=== PATIENT | male | born 1960 | race Caucasian/White ===

== ENCOUNTER 2022-06-10 06:46 | Inpatient (IN) | payer MEDICARE, MEDICAID ==
[~2022-06-10] VITALS: Ht 190.5 cm; Wt 85.8 kg
[2022-06-10 07:53] LABS: ALBUMIN 3.7 GM/DL (3.2-4.5); POTASSIUM 4.3 MMOL/L (3.6-5.0)
[2022-06-10 07:55] LABS: CALCIUM 9.7 MG/DL (8.5-10.1)
[2022-06-10 07:56] LABS: BASOPHILS % (AUTO) 0 % (0-10); EOSINOPHILS % (AUTO) 0 % (0-10); HEMATOCRIT 35 % (40-54); HEMOGLOBIN 11.8 g/dL (13.3-17.7); LYMPHOCYTES % (AUTO) 15 % (12-44); MEAN CORPUSCULAR HEMOGLOBIN 31 pg (25-34); MEAN CORPUSCULAR HGB CONC 34 g/dL (32-36); MEAN CORPUSCULAR VOLUME 90 fL (80-99); MEAN PLATELET VOLUME 9.8 fL (9.0-12.2); MONOCYTES # (AUTO) 0.5 10^3/uL (0.0-1.0); MONOCYTES % (AUTO) 7 % (0-12); NEUTROPHILS # (AUTO) 5.2 10^3/uL (1.8-7.8); NEUTROPHILS % (AUTO) 73 % (42-75); PLATELET COUNT 269 10^3/uL (130-400); TOTAL PROTEIN 6.4 GM/DL (6.4-8.2); WHITE BLOOD COUNT 7.1 10^3/uL (4.3-11.0)
[2022-06-10 07:57] LABS: BILIRUBIN,TOTAL 0.3 MG/DL (0.1-1.0)
[2022-06-10 07:59] LABS: CREATININE SERUM 0.77 MG/DL (0.60-1.30)
[2022-06-10 08:15] LABS: INR 1.1 (0.8-1.4); PROTHROMBIN TIME PATIENT 14.7 SEC (12.2-14.7)
--- NOTE | 2022-06-10 08:18 | Diagnostic Imaging Report ---
PROCEDURE: CT head without contrast. TECHNIQUE: Multiple contiguous axial images were obtained through the brain without the use of intravenous contrast. Auto Exposure Controls were utilized during the CT exam to meet ALARA standards for radiation dose reduction. INDICATION: Stage IV brain cancer. No previous studies for comparison. FINDINGS: There is vasogenic edema with a 1.3 cm hyperdense mass along the left parietal-occipital cortex. There is also a hyperdense area in the anterior left temporal fossa measuring 2.5 x 2 cm with mild vasogenic edema. There is a 2 cm x 1.5 cm hyperdense area in the right occipital region with mild vasogenic edema. Basal cisterns are clear. Ventricles appear normal. No evidence of subarachnoid hemorrhage. Mastoid air cells and paranasal sinuses are clear. No bony abnormalities. IMPRESSION: Multiple hyperdense areas with vasogenic edema as described. These likely represent hemorrhagic metastatic lesions with patient's history. No evidence of herniation or subarachnoid hemorrhage. No previous for comparison. Dictated by: Dictated on workstation # [id number]
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
[2022-06-10] MEDS ORDERED: morphine INJ 10 MG/ML 1ML (SYR OR VIAL) IVP STA (11:41)
[2022-06-10] MEDS ORDERED: LORazepam 0.5 MG (ATIVAN) TABLET BC ONE (11:45)
[2022-06-10] MEDS ORDERED: polyethylene glycoL POWDER 17 GM (MIRALAX) PACK PO PRN (13:15)
[2022-06-10] MEDS ORDERED: diphenhydrAMINE 25 MG TAB (BENADRYL) PO PRN (13:15)
[2022-06-10] MEDS ORDERED: CALCIUM CARBONATE 500 MG (TUMS) TAB.CHEW PO PRN (13:15)
[2022-06-10] MEDS ORDERED: ONDANSETRON 4 MG/2 ML (SDV) Z0FRAN IV PRN (13:15)
[2022-06-10] MEDS ORDERED: NS IV 500 ML 500 ML IV PRN (13:15)
[2022-06-10] MEDS ORDERED: MELATONIN 3 MG TABLET PO PRN (13:15)
[2022-06-10] MEDS ORDERED: BISACODYL 10 MG SUPP (DULCOLAX) PR PRN (13:15)
[2022-06-10] MEDS ORDERED: diphenhydrAMINE 50 MG/ML INJ (BENADRYL) IVP PRN (13:15)
[2022-06-10] MEDS ORDERED: MILK OF MAGNESIA 400 MG/5 ML 30 ML UDC PO PRN (13:15)
[2022-06-10] MEDS ORDERED: ONDANSETRON 4 MG (ZOFRAN) ORAL DISSOLVE TAB PO PRN (13:15)
[2022-06-10] MEDS ORDERED: ANTACID SUSP 30 ML UDC (MYLANTA) PO PRN (13:15)
[2022-06-10] MEDS ORDERED: LACTULOSE SYRUP 10GM/15ML (ENULOSE) 30ML UDC PO PRN (13:15)
[2022-06-10] MEDS ORDERED: ACETAMINOPHEN 325 MG TABLET PO PRN (13:15)
[2022-06-10] MEDS ORDERED: MORP-68 PO (14:38)
[2022-06-10] MEDS ORDERED: OMEP40CA6 PO (14:38)
[2022-06-10] MEDS ORDERED: OLAN15TA35 PO (14:38)
[2022-06-10] MEDS ORDERED: DIAZ5TAB49 PO (14:38)
[2022-06-10] MEDS ORDERED: MORP15TA PO (14:38)
[2022-06-10] MEDS ORDERED: ATOR10TA66 PO (14:38)
[2022-06-10] MEDS ORDERED: LEVE500T6 PO (14:38)
[2022-06-10] MEDS ORDERED: ESOM20CA58 PO (14:38)
--- NOTE | 2022-06-10 14:43 | Physical Therapy Evaluation ---
PT Evaluation-General Medical Diagnosis Admission Date Jun 10, 2022 at 13:11 Medical Diagnosis: AMS/metatstatic cancer to brain Onset Date: Jun 10, 2022 Therapy Diagnosis Therapy Diagnosis: debility Precautions Precautions/Isolations: Fall Prevention, Standard Precautions Referral Physician: Valentina Reason for Referral: Evaluation/Treatment Medical History Pertinent Medical History: HTN, Smoking Additional Medical History recent diagnosis of metastatic cancer to brain Current History ER secondary to AMS/left AMA from [facility] Reviewed History: Yes Social History Home: Multilevel Current Living Status: Spouse Entry Into Home: Stairs With Railing PT Steps Into Home: 4 PT Steps Inside Home: 12 Prior Prior Level of Function SCALE: Activities may be completed with or without assistive devices. 2-Xkfzgwmpsq-ldychst completes the activity by him/herself with no assistance from a helper. 5-Set-up or Clean-up Assistance-helper sets up or cleans up; patient completes activity. [place] assists only prior to or following the activity. 4-Supervision or Touching Assistance-helper provides verbal cues and/or touching/steadying and/or contact guard assistance as patient completes ac tivity. Assistance may be provided throughout the activity or intermittently. 3-Partial/Moderate Assistance-helper does LESS THAN HALF the effort. [place] lifts, holds or supports trunk or limbs, but provides less than half the effort. 2-Substantial/Maximal Assistance-helper does MORE THAN HALF the effort. [place] lifts or holds trunk or limbs and provides more than half the effort. 2-Bryupzhuw-ebdacn does ALL the effort. Patient does none of the effort to complete the activity. Or, the assistance of 2 or more helpers is required for the patient to complete the activity. If activity was not attempted, code reason: 7-Patient Refused. 9-Not Applicable-not attempted and the patient did not perform the activity before the current illness, exacerbation or injury. 10-Not Attempted due to Environmental Limitations-(lack of equipment, weather restraints, etc.). 88-Not Attempted due to Medical Conditions or Safety Concerns. Bed Mobility: 6 Transfers (B,C,W/C): 6 Gait: 6 Stairs: 6 Indoor Mobility (Ambulation): Independent Stairs: Independent Prior Devices Use: None PT Evaluation-Current Subjective Patient agrees to PT. Objective Patient Orientation: Person, Time, Situation ROM/Strength ROM Lower Extremities bilateral LE WFL Strength Lower Extremities 4-/5 grossly bilateral LE all planes Integumentary/Posture Bowel Incontinence: No Bladder Incontinence: No Posture WFL Neuromuscular (Tone, Coordination, Reflexes) grossly intact Sensory Vision: Functional Hearing: Functional Transfers Roll Left to Right (QC): 6 Sit to Lying (QC): 6 Lying to Sitting/Side of Bed(Q: 6 Sit to Stand (QC): 6 Chair/Flc-vc-Vqltq Xfer(QC): 6 Gait Does the Patient Walk?: Yes Mode of Locomotion: Walk Anticipated Mode of Locomotion: Walk Walk 10 feet (QC): 6 Walk 50 ft with 2 Turns(QC): 6 Walk 150 ft (QC): 6 Distance: 400' Gait Assistive Device: None Comments/Gait Description patient ambulated 100' backward independently Balance Sitting Static: Normal Sitting Dynamic: Normal Standing Static: Normal Standing Dynamic: Normal Picking up an Object (QC): 6 Assessment/Needs Patient is currently at independent PLOF with all gross motor skills and does no t require skilled PT intervention. Rehab Potential: Guarded PT Plan Treatment/Plan Treatment Plan: Discontinue PT Treatment Duration: Jun 10, 2022 Frequency: 1 time per week Estimated Hrs Per Day: .25 hour per day Time/GCodes Time In: 1330 Time Out: 1342 Total Billed Treatment Time: 12 Total Billed Treatment 1 visit EVMod 12 min LEATHA PERSON PT Jun 10, 2022 14:43
--- NOTE | 2022-06-10 14:59 | Tele-ICU Consult ---
History of Present Illness History of Present Illness Date Seen by Provider: Jun 10, 2022 Time Seen by Provider: 14:59 Date of Admission (Tele-ICU Physician , consultation) Available chart/ vitals / labs / Images reviewed H&P is from ER notes Patient's information available about PMH, Shx, Fhx allergy reviewed inEMR. ROS as per chart and RN report Now in ICU, hemodynamically stable Video assessment done using teleICU camera, rest of exam as per RN Discussed with RN. Consultants: Hospital course: A/P Melanoma, metastases to the brain on April 13, 2022 -CT with Multiple hyperdense areas with vasogenic edema, hemorrhagic metastatic lesions ( No evidence of herniation or SAH - as per ER note - patient's onc Dr. Jose Tejeda, ([place] ) is education and training coordinator this weekend. He may be reached on his mobile number at [phone]. As per ER MD note " From a prognostic perspective, the patient is not a candidate for any surgical or IR interventions, even if his status were to worsen" - cont steroids IV - BP monitor , SBP<140 - neurochecks -avoid hyponatremia - cont keppra Lines : , (Central Line Necessity Reviewed) [place]: OG: Nutrition: Analgesia: Anxiety/ delirium VTE Prophylaxis: scd Stress Ulcer Prophylaxis: na Glycemic Control: Plans in collaboration with bedside consultants and IM MDs. Discussed with RN to reach out if any questions or concerns A total of 31 minutes of critical care time was devoted to this patient today, required to treat and/or prevent further deterioration of critical care condition ( as above Allergies and Home Medications Allergies Coded Allergies: gabapentin (Verified Allergy, Unknown, 06/10/22) Home Medications Atorvastatin Calcium 10 Mg Tablet, 10 MG PO DAILY, (Reported) Diazepam 5 Mg Tablet, 5 MG PO Q8H, (Reported) Esomeprazole Magnesium 20 Mg Capsule.dr, 20 MG PO HS, (Reported) Levetiracetam 500 Mg Tablet, 1,000 MG PO BID, (Reported) TAKES 2 (500MG) TABS Morphine Sulfate 15 Mg Tablet, 15 MG PO Q4H PRN for PAIN-SEVERE (8-10), (Reported) Morphine Sulfate 15 Mg Tablet.er, 15 MG PO Q12H, (Reported) Olanzapine 15 Mg Tablet, 15 MG PO HS, (Reported) Omeprazole 40 Mg Capsule.dr, 40 MG PO DAILY, (Reported) Past Medical/Social/Family Hx Patient Social History Tobacco Use?: No Smoking Status: Never a Smoker Smokeless type used: Chew Smokeless Tobacco Frequency: Never a User Use of E-Cig and/or Vaping dev: No Substance use?: Yes Substance type: Marijuana MEDICAL JW W/ CARD Substance frequency: Daily Alcohol Use?: No Pt stated abuse/neglect: No Immunizations Up To Date Influenza Vaccine Up-to-Date: Yes; Up-to-Date Current Status Advance Directives: No Communicates: Verbally Primary Language: Ghanaian Preferred Spoken Language: Ghanaian Is interpretation needed?: No Implanted or Applied Medical D: Other Review of Systems Constitutional: see HPI Focused Exam Height, Weight, BMI Height: '" Weight: lbs. oz. kg; 23.11 BMI Method: Exam Exam Patient acknowledged, consented, and participated in this virtual visit which was conducted using real time audio/video Vital Signs Date Time Temp Pulse Resp B/P (MAP) Pulse Ox O2 Delivery O2 Flow Rate FiO2 06/10/22 14:00 62 13 148/99 100 Room Air 06/10/22 13:16 63 06/10/22 13:03 62 14 133/99 Room Air 06/10/22 13:00 66 19 150/95 99 06/10/22 07:13 36.8 70 13 137/85 (102) 99 Room Air Height & Weight Height: '" Weight: lbs. oz. kg; 23.11 BMI Method: General Appearance: No Apparent Distress, WD/WN HEENT: PERRL/EOMI, Normal ENT Inspection Neck: Normal Inspection Respiratory: Lungs Clear, Normal Breath Sounds, No Accessory Muscle Use, No Respiratory Distress Cardiovascular: Regular Rate, Rhythm, No Edema, No Murmur Capillary Refill: Less Than 3 Seconds Extremity: Normal Inspection, No Pedal Edema Neurologic/Psychiatric: Alert, Oriented x3, No Motor/Sensory Deficits, Normal Mood/Affect, case supervisor II-XII Norm as Tested, Other (Cognition dulled and history slightly confused) Skin: Normal Color, Warm/Dry Results Lab Laboratory Tests 06/10/22 07:10 Assessment/Plan Assessment/Plan 1 DARIO FREITAS MD Jun 10, 2022 14:59
[2022-06-10] MEDS ORDERED: hydrALAZINE (APESOLINE) 20 MG/ML VIAL IV PRN (15:00)
--- NOTE | 2022-06-10 15:08 | Occupational Therapy Eval ---
OT Evaluation-General/PLF Medical Diagnosis Admission Date Jun 10, 2022 at 13:11 Medical Diagnosis: AMS/metatstatic cancer to brain Onset Date: Jun 10, 2022 Therapy Diagnosis Therapy Diagnosis: n/a Precautions Precautions/Isolations: Fall Prevention, Standard Precautions Referral Physician: Valentina Referral Reason: Evaluation/Treatment Medical History Pertinent Medical History: HTN, Smoking Additional Medical History mets to the brain Current History Pt arrived to ER with AMS. Per chart, he left [facility]. Patient reports that he lives with his in a single story home (with a basement). He was indep with adls and cooking and his manages the laundry and cleaning. He was not using any AD at baseline. He reports old fracture resulting in limp when walking. Reviewed History: Yes Social History Home: Single Level Current Living Status: Spouse Entry Into Home: Stairs With Railing Steps Into Home: 4 Steps Inside Home: 12 (to basement) ADL-Prior Level of Function SCALE: Activities may be completed with or without assistive devices. 8-Lbmzahnzcj-eurprmf completes the activity by him/herself with no assistance from a helper. 5-Set-up or Clean-up Assistance-helper sets up or cleans up; patient completes activity. [place] assists only prior to or following the activity. 4-Supervision or Touching Assistance-helper provides verbal cues and/or touching/steadying and/or contact guard assistance as patient completes activity. Assistance may be provided throughout the activity or intermittently. 3-Partial/Moderate Assistance-helper does LESS THAN HALF the effort. [place] lifts, holds or supports trunk or limbs, but provides less than half the effort. 2-Substantial/Maximal Assistance-helper does MORE THAN HALF the effort. [place] lifts or holds trunk or limbs and provides more than half the effort. 6-Cjkzfwhya-gldfza does ALL the effort. Patient does none of the effort to complete the activity. Or, the assistance of 2 or more helpers is required for the patient to complete the activity. If activity was not attempted, code reason: 7-Patient Refused. 9-Not Applicable-not attempted and the patient did not perform the activity before the current illness, exacerbation or injury. 10-Not Attempted due to Environmental Limitations-(lack of equipment, weather restraints, etc.). 88-Not Attempted due to Medical Conditions or Safety Concerns. Self Care: Independent Functional Cognition: Unknown DME/Equipment: Tub/Shower OT Current Status Subjective Pt denies pain, agreeable to evaluation. Appearance Pt returned to supine, all needs within reach at OT departure. Mental Status/Objective Patient Orientation: Person, Place, Situation Attachments: IV, Telemetry Current Hearing Aids: No Hand Dominance: Right Upper Extremity ROM WNL Upper Extremity Sensation Pt reports mild "tingling" in R fingertips but that it does not interrupt his daily tasks such as eating. Upper Extremity Strength WFL ADL-Treatment Eating (QC): 6 Lower Body Dressing (QC): 6 On/Off Footwear (QC): 6 Pt independent with all transfers. No difficulty donning/doffing bilateral socks while seated EOB. Pt able to stand without difficulty. He was able to reach in multiple planes. No unsteadiness observed. Anticipate no difficulty with clothing management or standing functional tasks. Per PT, pt ambulated independently >500 feet without device. Pt denies any self care concerns, no skilled OT services warranted at this time. Education OT Patient Education: Purpose of tx/functional activities Teaching Recipient: Patient Teaching Methods: Discussion Response to Teaching: Verbalize Understanding, Return Demonstration OT Fpc Goals Fpc Goals 1=Demonstrate adherence to instructed precautions during ADL tasks. 2=Patient will verbalize/demonstrate understanding of assistive devices/modifications for ADL. 3=Patient will improve strength/tolerance for activity to enable patient to perform ADL's. OT Education/Plan Problem List/Assessment Assessment: No Skilled OT Needs ID'd Discharge Recommendations Plan/Recommendations: Discontinue OT Therapy Discharge Recommendati: Home & Family Treatment Plan/Plan of Care Treatment,Training & Education: Yes Patient would benefit from OT for education, treatment and training to promote independence in ADL's, mobility, safety and/or upper extremity function for ADL's. Plan of Care: ADL Retraining Treatment Duration: Jun 10, 2022 Frequency: 1 time per week Estimated Hrs Per Day: .25 hour per day Agreement: Yes Time/GCodes Start Time: 14:48 Stop Time: 14:58 Total Time Billed (hr/min): 10 Billed Treatment Time 1 visit Mary Patino OT Jun 10, 2022 15:08
[2022-06-10] MEDS: inSUlin ASPART (NovoLOG) 1 UNIT/0.01 ML (CHARGE PER UNIT) SC SCH ×2 (16:59→22:13)
[2022-06-10] MEDS: morphine ER 15 MG (MS CONTIN) TAB PO SCH (19:37)
[2022-06-10] MEDS ORDERED: AtorvaSTATin TABLET 10 MG TABLET PO SCH (21:00)
[2022-06-10] MEDS ORDERED: morphine ER 15 MG (MS CONTIN) TAB PO SCH (21:00)
[2022-06-10] MEDS ORDERED: SENNOSIDES 8.6 MG (SENOKOT) TAB PO SCH (21:00)
[2022-06-10] MEDS ORDERED: OLANZapine 5 MG ODT (ZyPREXA ZYDIS) PO SCH (21:00)
[2022-06-10] MEDS ORDERED: OLANZapine 5 MG (ZyPREXA) TAB PO SCH (21:00)
[2022-06-10] MEDS ORDERED: DOCUSATE SODIUM 100 MG (COLACE) CAP PO SCH (21:00)
[2022-06-10] MEDS: morphine IMMEDIATE RELEASE 15 MG TABLET PO PRN (23:21)
[2022-06-11 03:15] LABS: HEMATOCRIT 30 % (40-54); HEMOGLOBIN 10.3 g/dL (13.3-17.7); MEAN CORPUSCULAR HEMOGLOBIN 31 pg (25-34); MEAN CORPUSCULAR HGB CONC 34 g/dL (32-36); MEAN CORPUSCULAR VOLUME 90 fL (80-99); PLATELET COUNT 228 10^3/uL (130-400); WHITE BLOOD COUNT 6.8 10^3/uL (4.3-11.0)
[2022-06-11 03:22] LABS: CALCIUM 8.8 MG/DL (8.5-10.1)
[2022-06-11 03:27] LABS: CREATININE SERUM 0.73 MG/DL (0.60-1.30)
[2022-06-11 03:29] LABS: MAGNESIUM 1.9 MG/DL (1.6-2.4)
[2022-06-11] MEDS ORDERED: POTASSIUM CL 10MEQ/50ML IVPB 50 ML IV SCH (06:00)
[2022-06-11] MEDS ORDERED: MAGNESIUM 1 GM/100 ML IVPB 100 ML IV SCH (06:00)
[2022-06-11] MEDS ORDERED: KCL 20 MEQ TAB (K-DUR) PO SCH (06:00)
[2022-06-11] MEDS: inSUlin ASPART (NovoLOG) 1 UNIT/0.01 ML (CHARGE PER UNIT) SC SCH ×2 (06:22→10:47)
[2022-06-11] MEDS: PANTOPRAZOLE 40 MG (PROTONIX) TAB PO SCH ×2 (06:23→08:17)
[2022-06-11] MEDS: morphine ER 15 MG (MS CONTIN) TAB PO SCH (06:25)
[2022-06-11] MEDS ORDERED: SENNOSIDES 8.6 MG (SENOKOT) TAB PO SCH (06:30)
[2022-06-11] MEDS ORDERED: OLANZapine 5 MG ODT (ZyPREXA ZYDIS) PO SCH ×2 (06:30→21:00)
[2022-06-11] MEDS ORDERED: DOCUSATE SODIUM 100 MG (COLACE) CAP PO SCH (06:30)
[2022-06-11] MEDS ORDERED: AtorvaSTATin TABLET 10 MG TABLET PO SCH (06:30)
--- NOTE | 2022-06-11 08:45 | Tele-ICU Progress Note ---
Subjective Date Seen by a Provider: Jun 11, 2022 Time Seen by a Provider: 08:45 Subjective/Events-last exam (Tele-ICU Physician , Progress Note ) Available chart/ vitals / labs / Images reviewed Video assessment done using teleICU camera, rest of exam as per RN Discussed with RN Events overnight : Afebrile hemodynamically stable Respiratory - ra I/O = Drips: Pressors- no Consultants: Hospital course: (06/10) 62/M- AMS, brain mets, decadron. A/P Melanoma, metastases to the brain on April 13, 2022 -CT with Multiple hyperdense areas with vasogenic edema, hemorrhagic metastatic lesions ( No evidence of herniation or SAH - as per ER note - patient's onc Dr. 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 He may be reached on his mobile number at [phone]. As per ER MD note " From a prognostic perspective, the patient is not a candidate for any surgical or IR interventions, even if his status were to worsen" - cont steroids IV - BP monitor , SBP<140 - neurochecks -avoid hyponatremia - cont keppra Lines : periph , (Central Line Necessity Reviewed) [place]: void OG: Nutrition: po Analgesia: under controlled Anxiety/ delirium VTE Prophylaxis: scd Stress Ulcer Prophylaxis: na Plans in collaboration with bedside consultants and IM MDs. Discussed with RN to reach out if any questions or concerns A total of 20 minutes of critical care time was devoted to this patient toda y, required to treat and/or prevent further deterioration of critical care condition ( as above Sepsis Event Evaluation Height, Weight, BMI Height: '" Weight: lbs. oz. kg; 23.64 BMI Method: Exam Exam Patient acknowledged, consented, and participated in this virtual visit which was conducted using real time audio/video Vital Signs Date Time Temp Pulse Resp B/P (MAP) Pulse Ox O2 Delivery O2 Flow Rate FiO2 06/11/22 08:00 57 19 141/77 94 Room Air 06/11/22 07:52 36.0 06/11/22 07:00 43 06/11/22 07:00 58 21 144/94 99 Room Air 06/11/22 06:00 41 21 96 Room Air 06/11/22 05:00 42 11 97 Room Air 06/11/22 04:09 98 Room Air 06/11/22 04:00 40 12 97 Room Air 06/11/22 03:00 49 14 97 Room Air 06/11/22 02:00 49 16 152/100 97 Room Air 06/11/22 01:00 63 06/11/22 01:00 60 31 148/85 98 Room Air 06/11/22 00:00 99 Room Air 06/11/22 00:00 86 21 152/87 94 Room Air 06/10/22 23:00 96 14 126/90 97 Room Air 06/10/22 22:00 79 16 152/96 99 Room Air 06/10/22 21:00 84 16 162/105 98 Room Air 06/10/22 20:00 99 Room Air 06/10/22 20:00 78 18 106/69 94 Room Air 06/10/22 19:00 67 17 157/113 98 Room Air 06/10/22 19:00 71 06/10/22 18:00 79 20 114/86 97 Room Air 06/10/22 17:00 64 19 129/81 98 Room Air 06/10/22 16:00 36.0 06/10/22 16:00 62 12 121/82 96 Room Air 06/10/22 16:00 99 Room Air 06/10/22 15:00 89 123/95 96 Room Air 06/10/22 14:00 62 13 148/99 100 Room Air 06/10/22 13:30 99 Room Air 06/10/22 13:30 99 Room Air 06/10/22 13:16 63 06/10/22 13:03 62 14 133/99 Room Air 06/10/22 13:00 66 19 150/95 99 06/10/22 13:00 36.4 I & O 06/11/22 07:00 Intake Total 1235 ml Output Total 750 ml Balance 485 ml Height & Weight Height: '" Weight: lbs. oz. kg; 23.64 BMI Method: General Appearance: No Apparent Distress, WD/WN HEENT: PERRL/EOMI, Normal ENT Inspection Neck: Normal Inspection Respiratory: Lungs Clear, Normal Breath Sounds, No Accessory Muscle Use, No Respiratory Distress Cardiovascular: Regular Rate, Rhythm, No Edema, No Murmur Capillary Refill: Less Than 3 Seconds Extremity: Normal Inspection, No Pedal Edema Neurologic/Psychiatric: Alert, Oriented x3, No Motor/Sensory Deficits, Normal Mood/Affect, firmware developer II-XII Norm as Tested, Other (Cognition dulled and history slightly confused) Skin: Normal Color, Warm/Dry Results Lab Laboratory Tests 06/10/22 07:10 06/11/22 03:07 Assessment/Plan Assessment/Plan 1 DARIO FREITAS MD Jun 11, 2022 08:45
[2022-06-11] MEDS ORDERED: PANTOPRAZOLE 40 MG (PROTONIX) TAB PO SCH (09:00)
--- NOTE | 2022-06-11 09:28 | History & Physical-Hospitalist ---
History of Present Illness HPI/Chief Complaint Gerber Eric is a 62 year old male with metastatic melanoma to the brain who presented with altered mental status. He was recently at the [facility] ER for similar issues but left AMA due to prolonged wait time. He denies any focal weakness, but is generally weak. He does have some slurred speech which has been present. He also has some word finding difficulty. He underwent radiation for his brain metastases. He has not received chemotherapy or surgery. He denies headaches. He denies vision changes. He denies fevers and chills. He denies chest pain, shortness of breath, cough, abdominal pain, nausea, vomiting, diarrhea, and dysuria. The ER spoke with [facility], Dr. Tejeda, who stated patient would not be a candidate for neurosurgical or oncology intervention if his status worsens. They recommended high dose steroid treatment to help with edema and swelling, then follow up outpatient for possible further treatment. Source: patient, family Exam Limitations: no limitations Date Seen 06/11/22 Time Seen by a Provider: 18:15 Attending Physician Caitlin Quiroga DO PCP Admitting Physician: Zeina Aceves MD Attending Physician: Zeina Aceves MD Referring Physician Date of Admission Jun 10, 2022 at 13:11 Home Medications & Allergies Home Medications Reviewed patient Home Medication Reconciliation performed by pharmacy medication reconciliations compressor service technician and/or nursing. Patients Allergies have been reviewed. Allergies Allergies Coded Allergies gabapentin (Verified Allergy, Unknown, 06/10/22) Past Svoejap-Rcksla-Qpfwrj Hx Patient Social History Tobacco Use?: No Smoking Status: Never a Smoker Smokeless type used: Chew Smokeless Tobacco Frequency: Never a User Use of E-Cig and/or Vaping dev: No Substance use?: Yes Substance type: Marijuana Additional substance use comme: [facility] W/ CARD Substance frequency: Daily Alcohol Use?: No Pt feels they are or have been: No Current Status Advance Directives: No Communicates: Verbally Primary Language: Tristanian Preferred Spoken Language: Tristanian Is interpretation needed?: No Implanted or Applied Medical D: Other Past Medical History Surgeries: Orthopedic (Back fusion) Chronic Back Pain Melanoma (With metastases to brain) Family Medical History No Pertinent Family Hx Review of Systems Constitutional: weakness EENTM: no symptoms reported Respiratory: no symptoms reported Cardiovascular: no symptoms reported Gastrointestinal: no symptoms reported Physical Exam Physical Exam Vital Signs Vital Signs - First Documented 06/10/22 07:13 Temp 36.8 Pulse 70 Resp 13 B/P (MAP) 137/85 (102) Pulse Ox 99 O2 Delivery Room Air Capillary Refill : Less Than 3 Seconds Height, Weight, BMI Height: '" Weight: lbs. oz. kg; 23.64 BMI Method: General Appearance: No Apparent Distress, WD/WN HEENT: PERRL/EOMI, Pharynx Normal Neck: Normal Inspection, Supple Respiratory: Lungs Clear, Normal Breath Sounds, No Respiratory Distress Cardiovascular: Regular Rate, Rhythm, No Edema, No Murmur Gastrointestinal: Normal Bowel Sounds, Non Tender, Soft Extremity: Normal Inspection, No Pedal Edema Neurologic/Psychiatric: Alert, Oriented x3, Normal Mood/Affect Skin: Normal Color, Warm/Dry Results Results/Procedures Labs Laboratory Tests 06/10/22 07:10 06/11/22 03:07 Patient resulted labs reviewed. Imaging: Reviewed Imaging Report Assessment/Plan Admission Diagnosis Metastatic melanoma to the brain Admission Status: Inpatient Order (span 2 midnights) Reason for Inpatient Admission: Vasogenic edema Assessment and Plan Metastatic melanoma to the brain Vasogenic edema Possible hemorrhagic metastatic lesions CT with multiple lesions consistent with metastatic disease, vasogenic edema with likely hemorrhage Discussed with outpatient oncologists, recommended high dose steroids IV Decadron 8 mg Q6H Neurochecks TeleICU consulted DVT prophylaxis: SCDs only, Lovenox held due to brain metastases Critical Care Critically Ill Patient Diagnosis/Problems Diagnosis/Problems (1) Melanoma metastatic to brain Status: Acute (2) Vasogenic edema Status: Acute ZEINA ACEVES MD Jun 11, 2022 09:28
[2022-06-11] MEDS ORDERED: DEXA4TAB66 PO (12:03)
[2022-06-11] MEDS: morphine IMMEDIATE RELEASE 15 MG TABLET PO PRN (12:44)
[2022-06-11 13:44] VITALS: BP 148/83
--- NOTE | 2022-06-11 19:09 | Discharge Summary ---
Discharge Summary Hospital Course Was the Problem List Reviewed?: Yes Problems/Dx: (1) Melanoma metastatic to brain Status: Acute (2) Vasogenic edema Status: Acute Hospital Course Date of Admission: Jun 10, 2022 at 13:11 Admission Diagnosis : Metastatic melanoma to the brain, vasogenic edema, hemorrhagic metastatic brain lesions Family Physician/Provider: Caitlin Quiroga DO Date of Discharge: 06/11/22 Discharge Diagnosis: Metastatic melanoma to the brain, vasogenic edema, hemorrhagic metastatic brain lesions Hospital Course: Gerber Eric is a 62 year old male with metastatic melanoma to the brain who presented with altered mental status and was admitted with vasogenic edema and hemorrhagic metastatic brain lesions due to metastatic melanoma. He has received radiation therapy. The case was discussed with his oncology group at [facility] and they said he was not a candidate for any treatment if he was to worsen. They recommended admission for IV steroids. He was started on high dose IV Decadron. His elected to discharge home on hospice care. He was given a prescription for oral Decadron to continue at home. He was discharged in fair condition. Labs and Pending Lab Test: Laboratory Tests 06/10/22 22:07: Glucometer 145H 06/11/22 03:07: White Blood Count 6.8, Red Blood Count 3.35L, Hemoglobin 10.3L, Hematocrit 30L, Mean Corpuscular Volume 90, Mean Corpuscular Hemoglobin 31, Mean Corpuscular Hemoglobin Concent 34, Red Cell Distribution Width 12.8, Platelet Count 228, Mean Platelet Volume 10.0, Sodium Level 136, Potassium Level 4.0, Chloride Level 102, Carbon Dioxide Level 24, Anion Gap 10, Blood Urea Nitrogen 22H, Creatinine 0.73, Estimat Glomerular Filtration Rate 102, BUN/Creatinine Ratio 30, Glucose Level 146H, Calcium Level 8.8, Magnesium Level 1.9 06/11/22 06:13: Glucometer 159H 06/11/22 10:44: Glucometer 130H Home Meds Active Decadron (Dexamethasone) 4 Mg Tablet 4 Mg PO Q6H 5 Days Reported Nexium 24Hr (Esomeprazole Magnesium) 20 Mg Capsule.dr 20 Mg PO HS Omeprazole 40 Mg Capsule.dr 40 Mg PO DAILY Morphine Sulfate ER (Morphine Sulfate) 15 Mg Tablet.er 15 Mg PO Q12H Diazepam 5 Mg Tablet 5 Mg PO Q8H Levetiracetam 500 Mg Tablet 1,000 Mg PO BID TAKES 2 (500MG) TABS Morphine Sulfate IR Tablet (Morphine Sulfate) 15 Mg Tablet 15 Mg PO Q4H PRN Atorvastatin Calcium 10 Mg Tablet 10 Mg PO DAILY Olanzapine 15 Mg Tablet 15 Mg PO HS Assessment/Pt Instructions See instructions Discharge Planning: >30 minutes discharge planning Discharge Physical Examination Vital Signs Vital Signs Date Time Temp Pulse Resp B/P (MAP) Pulse Ox O2 Delivery O2 Flow Rate FiO2 06/11/22 13:44 36.0 50 13 148/83 100 Room Air General Appearance: No Apparent Distress, WD/WN Respiratory: Lungs Clear, No Respiratory Distress Cardiovascular: Regular Rate, Rhythm, No Murmur Gastrointestinal: Normal Bowel Sounds, Soft Extremity: Normal Inspection, Pedal Edema Skin: Normal Color, Warm/Dry Neurologic/Psychiatric: Alert, Normal Mood/Affect Allergies: Coded Allergies: gabapentin (Verified Allergy, Unknown, 06/10/22) Discharge Summary Date of Admission Jun 10, 2022 at 13:11 Date of Discharge Jun 11, 2022 at 13:50 Discharge Date: Jun 11, 2022 Discharge Time: 13:50 Admission Diagnosis Metastatic melanoma to the brain Discharge Diagnosis Metastatic melanoma to the brain Vasogenic edema Likely hemorrhagic metastatic lesions (1) Melanoma metastatic to brain Status: Acute (2) Vasogenic edema Status: Acute CHANI ACEVES MD Jun 11, 2022 19:09
== END 2022-06-11 13:50 | disposition hospice, home (50) | DRG 54 ==
LOC: ER 06:49 → UNDOADMOB 12:25 → ICU 12:25 → INTOOBSV 13:11 → OBSVTOIN 13:11 → UNDODISIN 06-11 13:50
PROVIDERS: ADMIT Internal Medicine; ATTEND Internal Medicine
DX: C79.31 Secondary malignant neoplasm of brain (principal); G93.6 Cerebral edema; C43.9 Malignant melanoma of skin, unspecified; F17.220 Nicotine dependence, chewing tobacco, uncomplicated; Z98.1 Arthrodesis status; Z88.8 Allergy status to other drugs, medicaments and biological substances
CPT/HCPCS: 36415; 70450; 80048; 80053; 82947; 83735; 85025; 85027; 85610; 85730